=== PATIENT | female | born 1985 | race Caucasian/White ===

== ENCOUNTER 2024-12-11 14:05 | Emergency (ER) | payer SELFPAY ==
[2024-12-11 14:06] VITALS: BP 114/92
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
[2024-12-11] MEDS: ZOFRAN ODT (ORALLY DISINTEGRATING) 4 MG PO ×3 (15:10→19:44)
[2024-12-11 15:38] LABS: HCG, Urine Qualitative Screen Negative
[2024-12-11 19:29] VITALS: BP 114/76
== END 2024-12-11 20:22 | disposition home or self-care (01) ==
LOC: EMR 14:05
PROVIDERS: Nurse Practitioner; EMERGENCY PHYSICIAN Emergency Medicine; FAMILY PHYSICIAN Family Medicine
DX: S06.0X0A Concussion without loss of consciousness, initial encounter (principal); W22.8XXA Striking against or struck by other objects, initial encounter
CPT/HCPCS: 99284; 70450; 81025